=== PATIENT | male | born 1950 | race Caucasian/White ===

== ENCOUNTER 2025-03-13 20:30 | Observation (INO) ==
--- NOTE | 2025-03-13 20:50 | DR.DIZZY ---
HPI Time seen Time Seen by Provider: 03/13/25 20:30 PCP Primary Care Physician: jaime Complaint Chief Complaint Doctor Comments: 74 yo M, hx of CVA, no cardia hx, on plavix for prior CVA. Tonight, states he was on the porch with his drinking [place], pt tried to get up, and couldn't, secondary to diffuse weakness. Denies other complaints. Chief Complaint:: pt to room 1 via EMS with complaint of falling while getting out of his chair. pt states" I couldn't get up and my couldn't help me up. I didn't get knocked out I just couldn't get up. I had a stroke about 20 years ago" pt denies any pain Source History Provided: Patient Mode of Arrival Mode of Arrival: EMS Timing Onset of Chief Complaint: 03/13/25 Context Stroke Symptoms: None PMH PMH Past Medical History: Yes Past Medical History: CVA, Hypertension and Hypothyroidism Past Surgical History: Yes Surgical History: Cholecystectomy Family History History of Family Medical Conditions: Yes Family Medical History: [place], Heart Failure and Hypertension Social History Do you use any recreational Drugs:: No Infectious screening In the last 2 months have you had wt loss of >10#?: NO Have you had fever, night sweats or hemotysis?: No Have you traveled outside the country in the last 6 months?: No Isolation: Standard ROS Review of Systems Constitutional: Weakness All Other Systems: Reviewed and Negative PE Vital Signs Vitals: Vital Signs Temperature 97.8 F Pulse Rate 79 Pulse Rate 89 Pulse Rate 85 Pulse Rate 84 Pulse Rate 79 Pulse Rate 85 Pulse Rate 77 Pulse Rate 80 Pulse Rate 77 Pulse Rate 78 Pulse Rate 84 Pulse Rate 79 Pulse Rate 73 Pulse Rate 75 Pulse Rate 78 Respiratory Rate 28 Respiratory Rate 31 Respiratory Rate 29 Respiratory Rate 24 Respiratory Rate 23 Respiratory Rate 24 Respiratory Rate 20 Respiratory Rate 27 Respiratory Rate 22 Respiratory Rate 18 Blood Pressure 171/84 Blood Pressure 134/71 Blood Pressure 138/83 Blood Pressure 157/82 Blood Pressure 160/95 Blood Pressure 162/85 O2 Sat by Pulse Oximetry 97 O2 Sat by Pulse Oximetry 86 O2 Sat by Pulse Oximetry 91 O2 Sat by Pulse Oximetry 96 O2 Sat by Pulse Oximetry 99 O2 Sat by Pulse Oximetry 94 O2 Sat by Pulse Oximetry 96 O2 Sat by Pulse Oximetry 91 O2 Sat by Pulse Oximetry 91 O2 Sat by Pulse Oximetry 97 O2 Sat by Pulse Oximetry 97 O2 Sat by Pulse Oximetry 96 General Limitations: No Limitations General Appearance: Alert and In No Apparent Distress Head Head Exam: Normal Inspection Eyes Eye exam: Normal Appearance ENT ENT Exam: Normal Exam, Normal Oropharynx and Normal External Ear Exam Neck Neck Exam: Normal Inspection and Full ROM Chest Chest Inspection: Normal Inspection Respiratory Respiratory Exam: Normal Lung Sounds Bilat Cardiovascular Cardiovascular Exam: Regular Rate and Normal Rhythm Abdominal Exam Abdominal Exam: Normal Inspection, Normal Bowel Sounds and Soft Rectal Rectal Exam: Deferred Extremeties Extremities Exam: Normal Inspection and Full ROM Back Back Exam: Normal Inspection and Full ROM Neurologic Neurological Exam: Alert and Oriented X3 Psychiatric Psychiatric Exam: Normal Affect and Normal Mood Skin Skin Exam: Warm, Dry, Intact and Normal Color COURSE Reevaluation 1st: Unchanged (Pt ambulated with assistance here in ER, however, remains near- syncopal each time he gets out of bed. Will admit for near syncope & weakness.) ROR Labs Reviewed Laboratory Results Reviewed?: Yes 03/13/25 21:03 03/13/25 21:03 Laboratory: WBC 6.0 X10^3/uL (3.6-10.0) 03/13/25 21:03 RBC 4.86 X10^6/uL (4.7-6.0) 03/13/25 21:03 Hgb 16.1 g/dL (13.5-18.0) 03/13/25 21:03 Hct 46.4 % (42.0-54.0) 03/13/25 21:03 MCV 95.4 fL (80.0-100.0) 03/13/25 21:03 MCH 33.1 pg (27.0-34.0) 03/13/25 21:03 MCHC 34.7 g/dL (33.0-35.0) 03/13/25 21:03 RDW 13.8 % (11.6-16.5) 03/13/25 21:03 Plt Count 203 X10^3/uL (150.0-450.0) 03/13/25 21:03 MPV 8.8 fL (7.4-11.0) 03/13/25 21:03 Neut % (Auto) 64.0 % (42.0-75.0) 03/13/25 21:03 Lymph % (Auto) 21.7 % (21.0-51.0) 03/13/25 21:03 [place] % (Auto) 7.5 % (0.0-13.0) 03/13/25 21:03 Eos % (Auto) 5.9 % (0.9-2.9) H 03/13/25 21:03 Baso % (Auto) 0.9 % (0.2-1.0) 03/13/25 21:03 Neut # (Auto) 3.8 x10^3/uL (2.2-4.8) 03/13/25 21:03 Lymph # (Auto) 1.3 X10^3/uL (1.3-2.9) 03/13/25 21:03 [place] # (Auto) 0.4 x10^3/uL (0.3-0.8) 03/13/25 21:03 Eos # (Auto) 0.4 x10^3/uL (0.0-0.2) H 03/13/25 21:03 Baso # (Auto) 0.1 X10^3/uL (0.0-0.1) 03/13/25 21:03 Absolute Nucleated RBC 0.2 /100WBC 03/13/25 21:03 PT 13.7 SECONDS (11.8-14.3) 03/13/25 21:03 INR Target Range - 03/13/25 21:03 INR 1.04 (0.8-1.3) 03/13/25 21:03 APTT 29.7 SECONDS (22.9-36.5) 03/13/25 21:03 PTT Comment - 03/13/25 21:03 Sodium 144 mmol/L (136-145) 03/13/25 21:03 Corrected Sodium 144 mmol/L (136-145) 03/13/25 21:03 Potassium 3.6 mmol/L (3.5-5.1) 03/13/25 21:03 Chloride 104 mmol/L (98-107) 03/13/25 21:03 Carbon Dioxide 30.7 mmol/L (21-32) 03/13/25 21:03 BUN 16 mg/dL (7-18) 03/13/25 21:03 Creatinine 0.86 mg/dL (0.70-1.30) 03/13/25 21:03 Est GFR (MDRD) Af Amer > 60 (>60) 03/13/25 21:03 Est GFR (MDRD) Non-Af > 60 (>60) 03/13/25 21:03 Glucose 112 mg/dL (65-99) H 03/13/25 21:03 Calcium 9.1 mg/dL (8.5-10.1) 03/13/25 21:03 Corrected Calcium TNP 03/13/25 21:03 Magnesium 2.0 mg/dL (2.0-2.9) 03/13/25 21:03 Total Bilirubin 0.40 mg/dL (0.2-1.0) 03/13/25 21:03 AST 21 Units/L (15-37) 03/13/25 21:03 ALT 15 Units/L (12-78) 03/13/25 21:03 Alkaline Phosphatase 97 Units/L (46-116) 03/13/25 21:03 Creatine Kinase 138 Units/L (39-308) 03/13/25 21:03 Troponin I High Sens 11.5 ng/L (4.0-60.0) 03/13/25 21:03 Total Protein 7.9 g/dL (6.4-8.2) 03/13/25 21:03 Albumin 3.5 g/dL (3.4-5.0) 03/13/25 21:03 Globulin 4.4 g/dL (2.5-4.5) 03/13/25 21:03 Albumin/Globulin Ratio 0.8 Ratio (1.1-2.1) L 03/13/25 21:03 Specimen Type Clean catch urine 03/13/25: Urine Color Yellow (YELLOW) 03/13/25: Urine Appearance Clear (CLEAR) 03/13/25: Urine pH 6.0 (5.0 - 8.0) 03/13/25: Ur Specific Artie 1.005 (1.000-1.030) 03/13/25: Urine Protein 1+ (NEGATIVE) 03/13/25: Urine Glucose (UA) Negative (NEGATIVE) 03/13/25: Urine Ketones Negative (NEGATIVE) 03/13/25: Urine Blood Negative (NEGATIVE) 12/17/25 21:23 Urine Nitrite Negative (NEGATIVE) 03/13/25 21:23 Urine Bilirubin Negative (NEGATIVE) 03/13/25 21:23 Urine Urobilinogen Normal (NORMAL) 03/13/25 21:23 Ur Leukocyte Esterase Negative (NEGATIVE) 03/13/25 21:23 Urine RBC None seen /HPF (0-3) 03/13/25 21:23 Urine WBC None seen /HPF (0-5) 03/13/25 21:23 Ur Squamous Epith Cells Negative /HPF (NEGATIVE) 03/13/25 21:23 Urine Bacteria Negative /HPF (NEGATIVE) 03/13/25 21:23 Ur Culture Indicated? No/not indicated 03/13/25 21:23 SARS-CoV-2 (PCR) Negative (NEGATIVE) 03/13/25 21:38 Influenza Type A (PCR) Negative (NEGATIVE) 03/13/25 21:38 Influenza Type B (PCR) Negative (NEGATIVE) 03/13/25 21:38 RSV (PCR) Negative (NEGATIVE) 03/13/25 21:38 Opioid Opioid Risk Tool Age (Igor box if 16-45): No History of Preadolescent Sexual Abuse: No Total: 0 Total Score Risk Category: Low Risk Copyright: Brenton SALAS predicting aberrant behaviors Discharge Plan Diagnosis Discharge Problem: Near syncope, Weakness Discharge Plan Patient Disposition: 09 ADMITTED INPATIENT Condition: Stable Prescriptions: No Action aspirin 325 MG tablet 325 mg PO DAILY levothyroxine [Synthroid] 200 MCG tablet 100 mcg PO DAILY losartan 100 mg tablet 100 mg PO QDAY furosemide 40 mg tablet 40 mg PO BID PRN Health Concerns: Post Hospitalization: new medications and changes needed to prevent readmission or further decline. Pt educated and given instructions on all concerns. Plan of Treatment: Continue with present treatment and follow up plan. Pt is to keep follow up appointment as instructed and take medications as ordered. Follow ups/Referrals Follow ups/Referrals: Jose David Fisher [Primary Care Provider, MEDICAL] - 3 days Instructions Stand Alone Forms: Find Help Web Site, Post Hospital Follow Up Care Print Language: MOZAMBICAN Provider Note Additional Notes Pt accepted by Dr Quintana
[2025-03-13 21:09] LABS: RED CELL DISTRIBUTION WIDTH 13.8 % (11.6-16.5)
--- NOTE | 2025-03-13 21:11 | EKG ---
Test Reason : weakness Blood Pressure : */* mmHG Vent. Rate : 81 BPM Atrial Rate : 81 BPM P-R Int : 230 ms QRS Dur : 74 ms QT Int : 376 ms P-R-T Axes : 34 -4 23 degrees QTc Int : 436 ms Sinus rhythm with 1st degree AV block Inferior infarct , age undetermined Abnormal ECG No previous ECGs available Confirmed by Diego De La Cruz MD ([id number]) on 03/14/2025 7:18:13 AM Referred By: Confirmed By: Diego De La Cruz MD
[2025-03-13 21:12] LABS: MEAN PLATELET VOLUME 8.8 fL (7.4-11.0)
[2025-03-13 21:16] LABS: INR 1.04 (0.8-1.3)
[2025-03-13 21:23] LABS: COR NA(FOR HYPERGLY) 144 mmol/L (136-145); CREATININE 0.86 mg/dL (0.70-1.30); eGFR NON BLACK RACES > 60 (>60)
[2025-03-13 21:30] LABS: BLOOD/HEMOGLOBIN,URINE NEGATIVE (NEGATIVE); LEUKOCYTE ESTERASE ,URINE NEGATIVE (NEGATIVE); NITRITES,URINE NEGATIVE (NEGATIVE)
[2025-03-13 21:31] LABS: APPEARANCE,URINE CLEAR (CLEAR)
[2025-03-13 21:41] LABS: SQUAMOUS EPITHELIAL CELL,UR NEGATIVE /HPF (NEGATIVE)
--- NOTE | 2025-03-13 21:46 | CT ---
EXAM: CT ABDOMEN AND PELVIS WITHOUT CONTRAST HISTORY: Trauma, pt fell; pt to room 1 via EMS with complaint of falling while getting out of his chair. pt states" I couldn't get up and my couldn't help me up. I didn't get knocked out I just couldn't get up. I had a stroke about 20 years ago" pt denies any pain. pt admits to having serval alcoholic drinks tonight COMPARISON: None. TECHNIQUE: Axial CT images were obtained through the abdomen and pelvis without contrast. Coronal reformatted images were included. All CT scans at this facility use dose modulation, iterative reconstruction, and/or weight based dosing when appropriate to reduce radiation dose to as low as reasonably achievable. FINDINGS: Technical note: Without the use of intravenous contrast, evaluation of solid abdominal viscera, vascular structures, urinary structures, and bowel is limited. Arms are draped over the upper abdomen while scanning which produces image degradation. LOWER THORAX: Lung bases are well-aerated. LIVER: Unremarkable. GALLBLADDER: Status post cholecystectomy. SPLEEN: Unremarkable. PANCREAS: Unremarkable. KIDNEYS/URETERS/BLADDER: Unremarkable. ADRENAL GLANDS: Unremarkable. ABDOMINAL AORTA: Mild calcifications without aneurysm. LYMPH NODES: No evidence of enlarged nodes. GI TRACT: No evidence for intestinal obstruction. Colonic diverticulosis without evidence of diverticulitis.Appendix is unremarkable. ASCITES: None. PNEUMOPERITONEUM: None. GENITALS: Prostate does not appear to be enlarged. ANTERIOR ABDOMINAL WALL: Small fat containing umbilical hernia. INGUINAL HERNIA:None. BONES: Portions of the lower ribcage that were imaged demonstrate old bilateral healed rib fractures. No evidence for acute fracture of the lumbosacral spine, pelvis, or proximal femurs. Degenerative changes of the spine and the SI joints. Grade 1 anterolisthesis of L4 relative to L5 is consistent with the degenerative changes that are present. IMPRESSION: Limited study. See technical note above. No evidence for acute process of the abdomen or pelvis. Status post cholecystectomy. Colonic diverticulosis without evidence of diverticulitis. Nonacute osseous findings as noted above. THIS IS AN ELECTRONICALLY VERIFIED FINAL REPORT 03/13/2025 9:42 PM - Electronically signed by Hector Cah DO
--- NOTE | 2025-03-13 21:47 | CT ---
EXAM: BRAIN W/O CON HISTORY: Injury in a fall, Confusion; pt to room 1 via EMS with complaint of falling while getting out of his chair. pt states" I couldn't get up and my couldn't help me up. I didn't get knocked out I just couldn't get up. I had a stroke about 20 years ago" pt denies any pain. pt admits to having several alcoholic drinks tonight COMPARISON: CT of the brain without contrast May 28, 2023 TECHNIQUE: CT of the brain without contrast FINDINGS: Intracranial atherosclerotic calcifications are noted. No hemorrhage or extra-axial collection. No midline shift. Generalized brain volume loss. Remote lacunar infarct left cerebellum. Zygomatic arches are intact. No sinus air-fluid levels. No skull fracture or suspicious bony lesion. IMPRESSION: No acute intracranial process. All CT scans at this facility use dose modulation, iterative reconstruction, and/or weight based dosing when appropriate to reduce radiation dose to as low as reasonably achievable. THIS IS AN ELECTRONICALLY VERIFIED FINAL REPORT 03/13/2025 9:43 PM - Electronically signed by Yuniel Mcnulty MD
--- NOTE | 2025-03-13 21:48 | RAD ---
EXAM: CHEST, 1 VIEW HISTORY: Shortness of Breath; pt to room 1 via EMS with complaint of falling while getting out of his chair. pt states" I couldn't get up and my couldn't help me up. I didn't get knocked out I just couldn't get up. I had a stroke about 20 years ago" pt denies any pain. pt admits to having serval alcoholic drinks tonight COMPARISON: Frontal chest radiograph May 28, 2023 TECHNIQUE: 1 frontal view of the chest FINDINGS: The trachea is midline. The heart silhouette is enlarged. There is pulmonary vascular congestion. No pneumothorax or lobar consolidation. IMPRESSION: Cardiomegaly with chronic appearing congestive changes. THIS IS AN ELECTRONICALLY VERIFIED FINAL REPORT 03/13/2025 9:45 PM - Electronically signed by Yuniel Mcnulty MD
[2025-03-13] MEDS ORDERED: NORCO 5/325 MG TAB PO PRN (23:32)
[2025-03-13] MEDS ORDERED: MORPHINE SULFATE INJ 2 MG INJ IVP PRN (23:32)
[2025-03-13] MEDS ORDERED: ULTRAM PO PRN (23:32)
[2025-03-13] MEDS ORDERED: ZOFRAN TAB 4 MG PO PRN (23:32)
[2025-03-13] MEDS ORDERED: ZOFRAN INJ 4 MG VIAL IVP PRN (23:32)
[2025-03-13] MEDS ORDERED: TYLENOL 325 MG TAB PO PRN (23:32)
[2025-03-13] MEDS ORDERED: CONSULT PHARMACY - POTASSIUM & MAGNESIUM XX SCH (23:45)
[2025-03-14] MEDS: NS 1,000 ML IV 1,000 ML IV SCH (00:25)
[2025-03-14 00:50] VITALS: BMI 41.6
[2025-03-14 05:58] LABS: MEAN PLATELET VOLUME 9.5 fL (7.4-11.0); RED CELL DISTRIBUTION WIDTH 13.6 % (11.6-16.5)
[2025-03-14 06:14] LABS: COR CA(FOR HYPOALB) 9.5 mg/dL (8.5-10.1); CREATININE 0.76 mg/dL (0.70-1.30); eGFR NON BLACK RACES > 60 (>60)
[2025-03-14] MEDS ORDERED: CONSULT PHARMACY - POTASSIUM & MAGNESIUM XX SCH (07:00)
[2025-03-14] MEDS: ASPIRIN PO SCH (08:30)
[2025-03-14] MEDS: K-DUR TAB 20 MEQ PO ONE (08:30)
[2025-03-14] MEDS: COZAAR PO SCH (08:31)
[2025-03-14] MEDS: LASIX PO PRN (08:34)
[2025-03-14] MEDS: ROBITUSSIN DM PO PRN (09:16)
[2025-03-14] MEDS: LOVENOX INJ 40 MG SYR SC SCH (10:20)
[2025-03-14] MEDS: THIAMINE HCL INJ IVP SCH (10:21)
[2025-03-14] MEDS: DIFLUCAN PO SCH (15:12)
[2025-03-14] MEDS: HYDROCORTISONE CRM 1% TOP PRN (16:06)
[2025-03-15 06:03] LABS: MEAN PLATELET VOLUME 9.4 fL (7.4-11.0); RED CELL DISTRIBUTION WIDTH 13.6 % (11.6-16.5)
[2025-03-15 06:27] LABS: COR CA(FOR HYPOALB) 9.6 mg/dL (8.5-10.1); CREATININE 0.85 mg/dL (0.70-1.30); eGFR NON BLACK RACES > 60 (>60)
[2025-03-15] MEDS ORDERED: CONSULT PHARMACY - POTASSIUM & MAGNESIUM XX SCH (07:00)
[2025-03-15] MEDS: MAG-OX TAB PO SCH (08:30)
[2025-03-15] MEDS: K-DUR TAB 20 MEQ PO SCH (08:30)
[2025-03-15 09:03] VITALS: RESP 18
[2025-03-15] MEDS: MAGNESIUM SULFATE 1 GRAM/100 mL PREMIX 1 G/100 ML BAG IV SCH (09:31)
[2025-03-15 12:26] VITALS: BP 160/88; PULSE 64; TEMP 97.4; O2SAT 97
== END 2025-03-15 14:00 | disposition home or self-care (01) ==
LOC: SUPCPDRO → MED/SURG 20:30 → ER 20:30 → MED/SURG 03-14 00:04
PROVIDERS: ADMIT Obstetrics & Gynecology Obstetrics; ATTEND Obstetrics & Gynecology Obstetrics
DX: K57.30 Diverticulosis of large intestine without perforation or abscess without bleeding; Z79.899 Other long term (current) drug therapy; R79.89 Other specified abnormal findings of blood chemistry; R26.89 Other abnormalities of gait and mobility; I10 Essential (primary) hypertension; E03.8 Other specified hypothyroidism; R94.31 Abnormal electrocardiogram [ECG] [EKG]; Y92.098 Other place in other non-institutional residence as the place of occurrence of the external cause; E51.2 Wernicke's encephalopathy; W07.XXXA Fall from chair, initial encounter; R41.0 Disorientation, unspecified; Z86.73 Personal history of transient ischemic attack (TIA), and cerebral infarction without residual deficits; R06.02 Shortness of breath; R53.1 Weakness; R55 Syncope and collapse; Z03.818 Encounter for observation for suspected exposure to other biological agents ruled out; K42.9 Umbilical hernia without obstruction or gangrene